=== PATIENT | male | born 1990 | race Caucasian/White ===

== ENCOUNTER 2018-08-25 11:14 | Emergency (ER) | payer OTHER ==
[~2018-08-25] VITALS: Ht 182.9 cm; Wt 90.7 kg
[2018-08-25] MEDS ORDERED: WELLBUTRIN 75 M75 M1 PO (11:23)
[2018-08-25] MEDS ORDERED: IBUPROFEN 800800 MG PO (12:26)
[2018-08-25 12:38] VITALS: BP 135/85
== END 2018-08-25 12:39 | disposition home or self-care (01) ==
LOC: M.ERS 11:14
DX: M25.532 Pain in left wrist (principal); F17.200 Nicotine dependence, unspecified, uncomplicated